=== PATIENT | male | born 1985 | race Caucasian/White ===

== ENCOUNTER 2023-07-08 13:16 | Outpatient (CLI) | payer BC ==
[~2023-07-08 13:16] MED LIST: Iopamidol 370 76% 100 ML VIAL ONE
== END 2023-07-08 13:17 | disposition home or self-care (01) ==
LOC: CSHCT 13:16
PROVIDERS: ATTEND Family Medicine
DX: R59.1 Generalized enlarged lymph nodes (principal)
CPT/HCPCS: 70491

== ENCOUNTER 2024-10-08 09:35 | Outpatient (CLI) | payer BC | END 2024-10-08 09:36 | disposition home or self-care (01) | LOC: CSHULT 09:35 | PROVIDERS: ATTEND Family Medicine | DX: R74.01 Elevation of levels of liver transaminase levels (principal) | CPT/HCPCS: 76700 ==